=== PATIENT | female | born 1985 | race Caucasian/White ===

== ENCOUNTER 2016-07-10 07:41 | Outpatient (CLI) | payer BC ==
[~2016-07-10] VITALS: Ht 165.1 cm; Wt 114.5 kg
[~2016-07-10 07:41] MED LIST: MULT-506 PO
[2016-07-10] MEDS ORDERED: PRENTAB26 PO (07:53)
[2016-07-10 07:54] VITALS: Ht 165.1 cm; Wt 114.5 kg
--- NOTE | 2016-07-10 11:08 | DIAGNOSTIC IMAGING REPORT ---
ULTRASOUND LIMITED CLINICAL HISTORY: Reported history of oligohydramnios and a large subchorionic hematoma. Reportedly 23 weeks by dates. COMPARISON STUDY: No priors. FINDINGS: Real-time, grayscale, and color Doppler sonography of the fetus and gravid uterus is performed. There is a single live intrauterine gestation with estimated heart rate of 144 bpm. Positioning is cephalic. There is diminished amniotic fluid volume. The amniotic fluid index measures 4.8 cm. The placenta is posteriorly, and there is an apparent complete placenta previa. The cervix appears closed and measures at least 3.6 cm in length. There is no hemorrhage identified on today's examination. IMPRESSION: 1. There is a single live intrauterine gestation with an estimated heart rate of 144 bpm. 2. Note that this does not constitute a dedicated scan. 3. Significantly diminished volume of amniotic fluid with an amniotic fluid index of 4.8 cm. 4. The placenta is posterior and a complete placenta previa is suspected. 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 5. No hemorrhage is identified on today's examination. Dictated: 07/10/2016 9:57 AM Transcribed: 07/10/2016 11:07 AM [email or web address] Electronically signed by: Tony Zelaya M.D. 07/10/2016 11:08 AM Dictated Date/Time: 07/10/2016 9:57 AM
--- NOTE | 2016-07-10 11:18 | Discharge Instructions ---
Discharge Instructions Date of Service Jul 10, 2016. Admission Reason for Admission: 23 Weeks, Check Premature Rupture Discharge Discharge Diagnosis / Problem: oligohydraminos at 23 weeks Discharge Goals Goal(s): Continuing OB care Activity Recommendations Activity Limitations: as noted below ACTIVITY RECOMMENDATIONS: See Labor Sheet. SPECIAL CARE INSTRUCTIONS: Call Doctor if: * Regular contractions every 5 minutes or greater than contractions in one hour. * Bleeding * Water breaks or is leaking * Decreased movement * Fever >100.4 degrees F * Pain not relieved by routine measures or pain medication ordered. FOLLOW UP VISIT: Return to Labor and Delivery on for /call for appointment time . Follow-up Visit with: When: . Current Hospital Diet Patient's current hospital diet: Discharge Diet Recommended Diet: Regular Diet Pending Studies Studies pending at discharge: no Medical Emergencies . Who to Call and When: Medical Emergencies: If at any time you feel your situation is an emergency, please call 911 immediately. . Non-Emergent Contact Non-Emergency issues call your: Specialist . . "Provider Documentation" section prepared by Michael Shaffer. VTE Core Measure Inpt VTE Proph given/why not?: Treatment not indicated
--- NOTE | 2016-07-10 11:28 | Progress Note ---
Progress Note Date of Service Jul 10, 2016. Progress Note H&P dictated
--- NOTE | 2016-07-10 12:13 | HISTORY & PHYSICAL EXAMINATION ---
DATE OF ADMISSION: 07/10/2016 HISTORY OF PRESENT ILLNESS: The patient is a 30-year-old G4, P3 due date 11/01/2016 making at 23 weeks and 5 days. The patient's has been complicated by a large subchorionic hematoma with oligohydramnios. Her last scan at maternal medicine showed no significant fluid. There was no 2 x 2 pocket of fluid even recorded on ultrasound. The patient today presented to labor and delivery because she woke up with some vaginal discharge and was concerned if she was ruptured. On arrival to labor and delivery, she had no shortness of breath, no chills. She had no gross pooling. Nitrizine was negative so was AmniSure. An ultrasound done showed she had a fluid pocket of 4.8 today which is a remarkable increase from what was performed at [facility] in her last visit. She was observed here for couple of hours and given a pad. She did not have any discharge or any leaking of fluid. The patient has an appointment with maternal medicine tomorrow. Of significance is the fact that the ultrasound done here today at [facility] is suspicious for complete placenta previa. This is a new finding. She will address this with maternal medicine tomorrow, a copy of her ultrasound done today is given to her, so she can present it to the perinatologist at tomorrow's appointment. PAST MEDICAL HISTORY: 1. History of C-sections x3. 2. History of asthma. 3. Obesity, BMI class 3. SOCIAL HISTORY: The patient denies tobacco, drug or alcohol use. FAMILY HISTORY: Noncontributory. LABS: Blood type is A negative, antibody negative, rubella immune, PHYSICAL EXAMINATION: GENERAL: Well-developed, well-nourished white female in no acute distress. HEART: S1, S2, regular rhythm and rate. LUNGS: Clear to auscultation bilaterally. ABDOMEN: Gravid. heart rate is documented. Ultrasound was performed and is reviewed. Findings of the ultrasound is as dictated in the HPI. PELVIC: Deferred. EXTREMITIES: No cyanosis, clubbing or edema. ASSESSMENT AND PLAN: A 30-year-old G4, P3 at 23+ weeks with complicated by subchorionic hematoma and oligohydramnios. The patient is here for evaluation of possible rupture of membranes. She is not ruptured. This has been confirmed by both AmniSure and Nitrazine as well as ultrasound. The patient has been discharged home and will follow up with maternal medicine tomorrow. MARII
== END 2016-07-10 11:30 | disposition home or self-care (01) ==
LOC: C.LD 07:41 → C.OPB 07:41
PROVIDERS: ATTEND Obstetrics & Gynecology
DX: O20.8 Other hemorrhage in early pregnancy (principal); O41.02X0 Oligohydramnios, second trimester, not applicable or unspecified; O99.512 Diseases of the respiratory system complicating pregnancy, second trimester; J45.909 Unspecified asthma, uncomplicated; O99.212 Obesity complicating pregnancy, second trimester; Z3A.23 23 weeks gestation of pregnancy